=== PATIENT | female | born 1975 | race Two or more races ===

== ENCOUNTER 2017-10-21 14:41 | Emergency (ER) | payer OTHER ==
[~2017-10-21] VITALS: Ht 162.6 cm; Wt 54.4 kg
[2017-10-21] MEDS ORDERED: ONDANSETRON HCL/PF 4 MG/2 ML VIAL IV ONE (15:00)
[2017-10-21] MEDS ORDERED: LORAZEPAM INJ 2 MG/ML VIAL IV ONE (15:00)
[2017-10-21] MEDS ORDERED: ONDANSETRON HCL/PF 4 MG/2 ML VIAL ONE (15:04)
[2017-10-21] MEDS ORDERED: LORAZEPAM INJ 2 MG/ML VIAL ONE (15:05)
--- NOTE | 2017-10-21 16:50 | NUR ---
IV removed. Catheter intact and site benign. Pressure and 4x4 applied to site. No bleeding noted.
[2017-10-21 17:11] VITALS: BP 123/71
== END 2017-10-21 17:18 | disposition home or self-care (01) ==
LOC: ER 14:44 → EDBD 14:44 → ER 17:18
DX: R10.13 Epigastric pain (principal); F45.8 Other somatoform disorders
CPT/HCPCS: A4606; J2060; J2405; Z7610

== ENCOUNTER 2020-01-20 10:41 | Emergency (ER) | payer OTHER ==
[~2020-01-20] VITALS: Ht 165.1 cm; Wt 67.6 kg
--- NOTE | 2020-01-20 11:00 | NUR ---
BIB Son Brian "[place]/Dizzy/CP/Palpitations not able to move left side/numb-Been having similar episodes of same in past- goes away by itself". On room air, breathing evenly and unlabored. connected to the monitor and pulse ox. kept comfortable, will continue to monitor accordingly.
[2020-01-20] MEDS ORDERED: LORAZEPAM INJ 2 MG/ML VIAL ONE (11:19)
[2020-01-20 11:29] LABS: BASOPHILS % (AUTO) 0.7 % (0.0-2.0); EOSINOPHILS % (AUTO) 3.2 % (0.0-6.0); HEMATOCRIT 37 % (33-45); HEMOGLOBIN 12.6 g/dL (11.5-14.8); LYMPHOCYTES # (AUTO) 1.1 /CMM (0.8-4.8); LYMPHOCYTES % (AUTO) 19.2 % (20.0-44.0); MEAN CORPUSCULAR HGB CONC 34 g/dl (31.0-36.0); MEAN CORPUSCULAR VOLUME 91 fL (82-100); MONOCYTES # (AUTO) 0.5 /CMM (0.1-1.30); MONOCYTES % (AUTO) 8.6 % (2.0-12.0); NEUTROPHILS # (AUTO) 3.7 /CMM (1.8-8.9); NEUTROPHILS % (AUTO) 68.3 % (43.0-81.0); PLATELET COUNT (AUTO) 309 /CMM (150-450); RED BLOOD CELL COUNT(AUTO) 4.08 MIL/uL (4.0-5.2); WHITE BLOOD COUNT (AUTO) 5.5 K/uL (4.3-11.0)
[2020-01-20] MEDS ORDERED: IV NS 0.9% 500 ML BAG IV ONE (11:30)
[2020-01-20] MEDS ORDERED: LORAZEPAM INJ 2 MG/ML VIAL IV ONE (11:30)
[2020-01-20 11:36] LABS: CALCIUM, SERUM 8.7 mg/dL (8.5-10.1); CARBON DIOXIDE 25 mmol/L (21-32); CHLORIDE 104 mmol/L (98-107); CREATININE 0.7 mg/dL (0.6-1.3); GLUCOSE 96 mg/dL (74-106); POTASSIUM 3.5 mmol/L (3.5-5.1); SODIUM SERUM 139 mmol/L (136-145); UREA NITROGEN, BLOOD 11 mg/dL (7-18)
--- NOTE | 2020-01-20 11:41 | NUR ---
angy at bedside for x-ray
[2020-01-20 11:42] LABS: ALANINE AMINOTRANSFERASE 33 U/L (12-78); ALBUMIN 3.7 g/dL (3.4-5.0); ALKALINE PHOSPHATASE 58 U/L (46-116); ASPARTATE AMINOTRANSFERASE 23 U/L (15-37); BILIRUBIN,DIRECT 0.1 mg/dL (0.0-0.2); BILIRUBIN,TOTAL 0.4 mg/dL (0.2-1.0)
--- NOTE | 2020-01-20 11:43 | NUR ---
urine collected and sent to lab
[2020-01-20 13:21] VITALS: BP 122/82
--- NOTE | 2020-01-20 13:22 | NUR ---
Patient discharged to home in stable condition. Written and verbal after care instructions given. Patient verbalizes understanding of instruction.IV removed. Catheter intact and site benign. Pressure and 4x4 applied to site. No bleeding noted.
== END 2020-01-20 13:22 | disposition home or self-care (01) ==
LOC: ER 10:44
DX: F45.8 Other somatoform disorders (principal)
CPT/HCPCS: 36415; 70450; 71045; 80048; 80076; 84484; 84703; 85025; 85730; 93005; 99285; J2060; J7040